=== PATIENT | male | born 1990 | race Caucasian/White ===

== ENCOUNTER 2016-12-16 17:19 | Emergency (ER) | payer BC ==
[2016-12-16 17:34] VITALS: BP 110/55; PULSE 66; TEMP 98.5; BMI 26.7
--- NOTE | 2016-12-16 18:22 | PDOC ---
History of Present Illness - General Chief Complaint: Injury Stated Complaint: RT SHOULDER PAIN Time Seen by Provider: 12/16/16 18:18 - History of Present Illness Initial Comments: 12/16/16 18:21 CHIEF COMPLAINT: shoulder pain HISTORY OF PRESENT ILLNESS: 26 yo M with no PMH presents to ED with R shoulder pain. Patient states he was at work 4 days ago and lifted a heavy box. No recent travel or sick contacts. PAST MEDICAL HISTORY: Denies past medical history FAMILY HISTORY: Denies SOCIAL HISTORY: Marijuana use, once weekly. Denies tobacco, alcohol use. SURGICAL HISTORY: Denies ALLERGIES: No known drug allergies REVIEW OF SYSTEMS General/Constitutional: Denies fever or chills. Denies weakness, weight change. HEENT: Denies change in vision. Denies ear pain or discharge. Denies sore throat. Cardiovascular: Denies chest pain or shortness of breath. Respiratory: Denies cough, wheezing, or hemoptysis. Gastrointestinal: Denies nausea, vomiting, diarrhea or constipation. Denies rectal bleeding. Genitourinary: Denies dysuria, frequency, or change in urination. Musculoskeletal: R shoulder pain. PHYSICAL EXAM General Appearance: Well-appearing, appropriately dressed. No apparent distress , no intoxication. HEENT: EOMI, PERRLA, normal ENT inspection, normal voice, TMs normal, pharynx normal. No conjunctival pallor. No photophobia, scleral icterus. Neck: Supple. Trachea midline. No tenderness, rigidity, carotid bruit, stridor , lymphadenopathy, or thyromegaly. Respiratory/Chest: Lungs CTAB. No shortness of breath, chest tenderness, respiratory distress, accessory muscle use. No crackles, rales, rhonchi, stridor , wheezing, dullness Cardiovascular: RRR. S1, S2. No JVD, murmur, bradycardia, tachycardia. Vascular Pulses: Dorsalis-Pedis (R): 2+, Dorsalis-Pedis (L): 2+ Gastrointestinal/Abdominal: Normal bowel sounds. Abdomen soft, non-distended. No tenderness or rebound tenderness. No organomegaly, pulsatile mass, guarding , hernia, hepatomegaly, splenomegaly. Lymphatic: No adenopathy, tenderness. Musculoskeletal/Extremities: Tenderness to palpation to R acroclavicular joint. Normal inspection. FROM of all extremities, normal capillary refill. Pelvis Stable. No CVA tenderness. No tenderness to extremities, pedal edema, swelling , erythema or deformity. Integumentary: Appropriate color, dry, warm. No cyanosis, erythema, jaundice or rash Neurologic: wire dropper II-XII intact. Fully oriented, alert. Appropriate mood/affect. Motor strength 5/5. No appreciable EOM palsy, facial droop or sensory deficit. 12/16/16 19:15 Past History - Past Medical History Allergies/Adverse Reactions: Allergies Allergy/AdvReac Type Severity Reaction Status Date / Time No Known Allergies Allergy Verified 12/16/16 17:31 Home Medications: Ambulatory Orders No Home Medications 0 dose .ROUTE UTDICT 11/07/12 Ibuprofen 600 mg PO TID #21 tablet 12/16/16 Other medical history: DENIES. - Surgical History Abdominal Surgery: Yes (HERNIA) - Psycho/Social/Smoking Cessation Hx Anxiety: No Suicidal Ideation: No Smoking Status: No Smoking History: Never smoked Have you smoked in the past 12 months: No Number of Cigarettes Smoked Daily: 0 Hx Alcohol Use: No Substance Use Type: None *Physical Exam - Vital Signs Last Vital Signs Temp Pulse Resp BP Pulse Ox 98.5 F 66 19 110/55 98 12/16/16 17:31 12/16/16 17:31 12/16/16 17:31 12/16/16 17:31 12/16/16 17:31 Medical Decision Making - Medical Decision Making 12/16/16 19:31 26 yo M with no PMH presents to fast track with R shoulder pain x 4 days. -R shoulder x-ray r/o dislocation/subluxation -60 mg IM Toradol Patient refused Toradol. X-ray negative for acute pathology. Ibuprofen rx sent to pharm. Ortho referral prvodied. Advised patient to take medications as prescribed and f/u with ortho if pain persists x 1 week. Advised patient of signs and symptoms for return to ER; patient verbalized understanding and agrees to plan. *DC/Admit/Observation/Transfer Diagnosis at time of Disposition: Shoulder pain Qualifiers: Chronicity: acute Laterality: right Qualified Code(s): M25.511 - Pain in right shoulder - Discharge Dispostion Disposition: HOME Condition at time of disposition: Stable Admit: No - Prescriptions Prescriptions: Ibuprofen 600 mg PO TID #21 tablet - Referrals Referrals: Hubert Cruz MD [Primary Care Provider] - Yonis Montelongo MD [Staff Physician] - - Patient Instructions Printed Discharge Instructions: DI for Shoulder Pain Additional Instructions: Please take medications as prescribed. Please rest your injured shoulder for the next few days. If your pain continues despite taking the medication, please follow up with orthopedics for further evaluation and possible MRI or physical therapy. If you experience any worsening pain, loss of sensation to your arm, elbow, or hand, or inability to move your arm, please return to the ER.
[2016-12-16] MEDS ORDERED: KETOROLAC TROMETHAMINE 60 MG/2 ML VIAL IM ONE (18:28)
[2016-12-16] MEDS ORDERED: KETOROLAC TROMETHAMINE 60 MG/2 ML VIAL ONE (18:39)
== END 2016-12-16 19:43 | disposition home or self-care (01) ==
LOC: JERFT 17:19
DX: M25.511 Pain in right shoulder (principal); X50.0XXA Overexertion from strenuous movement or load, initial encounter; Y93.9 Activity, unspecified; Y92.63 Factory as the place of occurrence of the external cause; Y99.0 Civilian activity done for income or pay
CPT/HCPCS: 73030-TC-RT; 99281-25

== ENCOUNTER 2017-11-10 17:16 | Emergency (ER) | payer BC, OTHER ==
--- NOTE | 2017-11-10 18:27 | PDOC ---
Rapid Medical Evaluation Time Seen by Provider: 11/10/17 18:23 Medical Evaluation: Allergies Allergy/AdvReac Type Severity Reaction Status Date / Time No Known Allergies Allergy Verified 12/16/16 17:31 11/10/17 18:23 Pt presents with low back pain for 3 weeks. Pt states that his pain on the L side with some pain going down the L leg. Denies saddle anesthesia, bladder/ bowel incontinence. 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 Exam: Ambulatory. TTP of the L low back. Orders: Nothing Pt to proceed to the ED for further evaluation. Discharge Disposition - Diagnosis Low back pain - Referrals - Patient Instructions - Post Discharge Activity
[2017-11-10 18:34] VITALS: BP 145/98; PULSE 64; TEMP 98.6; BMI 27.8
--- NOTE | 2017-11-10 18:37 | PDOC ---
History of Present Illness - General Chief Complaint: Back Pain Stated Complaint: BACK PAIN Time Seen by Provider: 11/10/17 18:23 History Source: Patient Exam Limitations: Clinical Condition - History of Present Illness Initial Comments: 11/10/17 18:34 Patient with no significant past medical history presenting with left lower back pain for 3 weeks radiating to back of left thigh w/o trauma. Patient reported history of intermittent sciatica pains. Denies any other symptoms 11/10/17 18:47 Timing/Duration: other (3 weeks) Past History - Past Medical History Allergies/Adverse Reactions: Allergies Allergy/AdvReac Type Severity Reaction Status Date / Time No Known Allergies Allergy Verified 11/10/17 18:25 Home Medications: Ambulatory Orders Back Brace [Ultra Support] 1 each MC DAILY #1 each 11/10/17 Methocarbamol [Robaxin -] 500 mg PO TID PRN #21 tablet 11/10/17 Naproxen 500 mg PO BID PRN #20 tablet. 11/10/17 - Surgical History Abdominal Surgery: Yes (HERNIA) - Suicide/Smoking/Psychosocial Hx Smoking Status: No Smoking History: Never smoked Have you smoked in the past 12 months: No Number of Cigarettes Smoked Daily: 0 Hx Alcohol Use: No Drug/Substance Use Hx: No Substance Use Type: None Review of Systems - Review of Systems Able to Perform ROS?: Yes Is the patient limited Mongolian proficient: No Constitutional: No: Chills, Diaphoresis, Fever, Loss of Appetite, Malaise, Night Sweats, Weakness, Weight Stable, Unintentional Wgt. Loss, Unexplained wgt Loss, Other HEENTM: No: Eye Pain, Blurred Vision, Tearing, Recent change in vision, Double Vision, Cataracts, Ear Pain, Ocular Prothesis, Ear Discharge, Nose Pain, Nose Congestion, Tinnitus, Nose Bleeding, Hearing Loss, Throat Pain, Throat Swelling , Mouth Pain, Dental Problems, Difficulty Swallowing, Mouth Swelling, Other Respiratory: No: Cough, Orthopnea, Shortness of Breath, SOB with Exertion, SOB at Rest, Stridor, Wheezing, Productive cough, Hemoptysis, Other Cardiac (ROS): No: Chest Pain, Edema, Irregular Heart Rate, Lightheadedness, Palpitations, Syncope, Chest Tightness, Other ABD/GI: No: Abdominal Distended, Abd. Pain w/ defecation, Blood Streaked Bowels , Constipated, Diarrhea, Difficulty Swallowing, Nausea, Poor Appetite, Poor Fluid Intake, Rectal Bleeding, Vomiting, Indigestion, Abdominal cramping, Tarry Stools, Other Musculoskeletal: Yes: Back Pain (3 weeks on left side radiating down back of left thigh), Muscle Pain (left lower back pain). No: Neck Pain Integumentary: No: Bruising, Change in Color, Change in Hair/Nails, Dryness, Erythema, Flushing, Lesions, Lumps, Pallor, Pruritus, Rash, Sweating, Other Neurological: No: Headache, Numbness, Paresthesia, Pre-Existing Deficit, Seizure , Tingling, Tremors, Weakness, Unsteady Gait, Ataxia, Dizziness, Other All Other Systems: Reviewed and Negative *Physical Exam - Vital Signs Last Vital Signs Temp Pulse Resp BP Pulse Ox 98.6 F 64 16 145/98 99 11/10/17 18:25 11/10/17 18:25 11/10/17 18:25 11/10/17 18:25 11/10/17 18:25 - Physical Exam Comments: 11/10/17 18:37 GENERAL: Well developed, well nourished. Awake and alert. No acute distress. HEENT: Normocephalic, atraumatic. PERRLA, EOMI. No conjunctival pallor. Sclera are non- icteric. Moist mucous membranes. Oropharynx is clear. NECK: Supple. Full ROM. No JVD. Carotid pulses 2+ and symmetric, without bruits. No thyromegaly. No lymphadenopathy. CARDIOVASCULAR: Regular rate and rhythm. No murmurs, rubs, or gallops. Distal pulses are 2+ and symmetric. PULMONARY: No evidence of respiratory distress. Lungs clear to auscultation bilaterally. No wheezing, rales or rhonchi. ABDOMINAL: Soft. Non-tender. Non-distended. No rebound or guarding. No organomegaly. Normoactive bowel sounds. MUSCULOSKELETAL . mild tenderness to left paravertebral spine of L5-S2. pain worse with elevation of left leg to 80 degrees to left lower back radiating down posterior left thigh.Normal range of motion at all joints. No bony deformities or tenderness. EXTREMITIES: No cyanosis. No clubbing. No edema. No calf tenderness. SKIN: Warm and dry. Normal capillary refill. No rashes. No jaundice. NEUROLOGICAL: Alert, awake, appropriate. Cranial nerves 2-12 intact. No deficits to light touch and temperature in face, upper extremities and lower extremities. No motor deficits in the in face, upper extremities and lower extremities. Normoreflexic in the upper and lower extremities. Normal speech. Toes are down- going bilaterally. Gait is normal without ataxia. PSYCHIATRIC: Cooperative. Good eye contact. Appropriate mood and affect. 11/10/17 18:43 General Appearance: Yes: Nourished, Appropriately Dressed. No: Apparent Distress Medical Decision Making - Medical Decision Making 11/10/17 18:45 patient withno significant past medical history presenting with left lower back pain radiating down back of leg trauma injury to lower back .Patient with symptoms of lower back pain with sciatica. X-ray of lumbosacral ordered to rule out spine pathology. Treat based on x-ray report *DC/Admit/Observation/Transfer Diagnosis at time of Disposition: Low back pain Qualifiers: Chronicity: acute Back pain laterality: left Sciatica presence: with sciatica Sciatica laterality: sciatica of left side Qualified Code(s): M54.42 - Lumbago with sciatica, left side - Discharge Dispostion Disposition: HOME Condition at time of disposition: Stable Decision to Admit order: No - Prescriptions Prescriptions: Back Brace [Ultra Support] 1 each MC DAILY #1 each Methocarbamol [Robaxin -] 500 mg PO TID PRN #21 tablet PRN Reason: Back Pain Naproxen 500 mg PO BID PRN #20 tablet. PRCat Reason: Back Pain - Referrals Referrals: Hubert Cruz MD [Primary Care Provider] - Yonis Montelongo MD [Staff Physician] - - Patient Instructions Printed Discharge Instructions: DI for Low Back Pain, Low Back Pain Additional Instructions: Relax and where lower back brace as prescribed. Apply heat to lower back twice or 3 times a day for 5-10 minutes as needed. Follow-up with orthopedics if no improvement in 2-3 days - Post Discharge Activity Forms/Work/School Notes: Back to Work
== END 2017-11-10 20:03 | disposition home or self-care (01) ==
LOC: JERFT 17:16
DX: M54.42 Lumbago with sciatica, left side (principal)
CPT/HCPCS: 72100-TC-FY; 99281-25

== ENCOUNTER 2023-06-17 02:07 | Emergency (ER) | payer BC, OTHER ==
[2023-06-17 02:15] VITALS: BP 164/98; PULSE 80; RESP 18; TEMP 98.3; BMI 29.4
== END 2023-06-17 06:54 | disposition home or self-care (01) ==
LOC: JER 02:07
DX: J02.9 Acute pharyngitis, unspecified (principal); R13.10 Dysphagia, unspecified
CPT/HCPCS: 70360-TC-FY; 99283-25